=== PATIENT | male | born 1960 | race Hispanic/Latino ===

== ENCOUNTER → 2018-12-17 | Outpatient (CLI) | payer OTHER, MEDICARE ==
[2018-12-17 11:37] LABS: INR 0.99; PROTHROMBIN TIME 13.6 seconds (11.9-14.5)
[2018-12-17 11:38] LABS: PARTIAL THROMBOPLASTIN TIME 29.2 seconds (23.8-35.5)
--- NOTE | 2018-12-17 13:37 | Diagnostic Imaging Report ---
Procedure: Ultrasound-guided left diagnostic and therapeutic thoracentesis. rail flaw detector operator: Julianne Rojas MD Pre-operative diagnosis: Large left pleural effusion Post-operative diagnosis: Small left pleural effusion Conscious Sedation: None Additional Medications: Lidocaine 1% for local anesthesia Contrast used: None Estimated blood loss: <5 cc Blood proximal administered: None Specimens: 1200 cc of serosanguinous fluid Implants: None Condition at completion: Stable Disposition: Recovery in IR, then discharge home DISCUSSION: Informed consent was obtained from the patient and documented in the medical record. The patient was placed in upright position. The left posterior chest wall was prepped and draped in the standard sterile fashion. A suitable percutaneous intercostal approach to the left pleural space was identified and the overlying skin was infiltrated with 1% lidocaine for local anesthesia. A large left pleural effusion was identified on ultrasound. Then under continuous sonographic guidance, a 5 [place] Yueh needle catheter was advanced into the pleural space. The catheter was advanced off the needle and connected to vacuum bottle with subsequent evacuation of 1200 cc of serosanguinous fluid. The catheter was removed and a sterile, occlusive dressing was applied. Postprocedure sonographic image showed small left effusion. The patient tolerated the procedure well without immediate complication. Sample was sent to lab. IMPRESSION: Ultrasound-guided diagnostic and therapeutic left thoracentesis with evacuation of 1200 cc of serosanguinous fluid. Signed by: Dr. Julianne Rojas MD on 12/17/2018 1:34 PM
--- NOTE | 2018-12-17 13:40 | Diagnostic Imaging Report ---
EXAMINATION: CHEST XRAY POST PROCEDURE INDICATION: Status post left thoracentesis. COMPARISON: None FINDINGS: TUBES and LINES: Status post project over the left subclavian/axillary vessels. LUNGS: Lungs are well inflated. Patchy opacity in the left lower lung likely represents atelectasis. The right lung is clear. No evidence of pulmonary edema. PLEURA: There is a small left basilar hydropneumothorax. HEART AND MEDIASTINUM: The cardiomediastinal silhouette is unremarkable. Postsurgical changes. BONES AND SOFT TISSUES: No acute osseous abnormality. Status post median sternotomy. UPPER ABDOMEN: No free air under the diaphragm. IMPRESSION: Small left basilar hydropneumothorax status post thoracentesis. Signed by: Dr. Julianne Rojas MD on 12/17/2018 1:36 PM
[2018-12-17 14:47] LABS: BODY FLUID TYPE PERITONEAL
[2018-12-17 14:48] LABS: BODY FLUID APPEARANCE SL.CLOUDY; BODY FLUID COLOR RED
[2018-12-17 14:50] LABS: RBC,BODY FLUID 10469 cells/uL; WBC,BODY FLUID 124 cells/uL
[2018-12-17 16:28] LABS: NEUTROPHILS,BODY FLUID 3 %
[2018-12-17 16:29] LABS: MONO/MACROPHG,BODY FLUID 92 %; OTHER CELLS,BODY FLUID 5 %
== END ==
LOC: US 10:05
PROVIDERS: ATTEND Internal Medicine Critical Care Medicine
DX: J94.9 Pleural condition, unspecified (principal); I50.22 Chronic systolic (congestive) heart failure; N18.5 Chronic kidney disease, stage 5; E11.22 Type 2 diabetes mellitus with diabetic chronic kidney disease; N18.6 End stage renal disease; Z99.2 Dependence on renal dialysis
CPT/HCPCS: 32555; 36415; 71045; 83615; 84157; 85049; 85610; 85730; 87070; 87205; 88112; 88305; 89051

== ENCOUNTER → 2020-06-27 | Day surgery (SDC) | payer MEDICARE, OTHER ==
[~2020-06-27] MED LIST: CARVEDILOL12.5 MG PO; EPHEDRINE SULFATE INJ 50 MG/ML VIAL ONE; FENTANYL CITRATE/PF 100MCG/2 ML INJ ONE; HUMALOG100 UNIT/3 SC; LANTUS 3ML100 UNITS/ SC; LIDOCAINE HCL 2% LOCAL INJ 5 ML SDV VIAL INJ ONE; LINZESS145 MCG PO; LIPITOR10 MG PO; MIDAZOLAM HCL 2 MG/2 ML VIAL ONE; NIFEDIPINE ER30 M1 PO; ONDANSETRON HCL4 MG PO; PANTOPRAZOLE SO40 MG PO; PROPOFOL IV EMULSION 10 MG/ML 20 ML VIAL ONE; SODIUM CHLORIDE 0.9% 500ML 500 ML ONE; TRADJENTA5 MG PO
[2020-06-27 13:43] LABS: BASOPHILS # (AUTO) 0.1 (0.0-0.1); BASOPHILS % 1.3 % (0.0-1.0); EOSINOPHILS # (AUTO) 0.2 (0.0-0.4); EOSINOPHILS % 2.3 % (0.0-6.0); HEMATOCRIT 42.1 % (38.2-49.6); LYMPHOCYTES # (AUTO) 1.5 (1.0-3.2); LYMPHOCYTES % 18.7 % (18.0-39.1); MEAN CORPUSCULAR HGB CONC 33.3 g/dL (31-35); MEAN CORPUSCULAR VOLUME 93.3 fL (81-99); MONOCYTES # (AUTO) 0.8 (0.2-0.8); MONOCYTES % 9.8 % (4.4-11.3); NEUTROPHILS # (AUTO) 5.5 (2.1-6.9); NEUTROPHILS % 67.3 % (38.7-80.0); PLATELET COUNT 141 x10e3/uL (140-360); RED BLOOD COUNT 4.51 x10e6/uL (4.3-5.7); RED CELL DISTRIBUTION WIDTH 13.7 % (11.7-14.4)
[2020-06-27 13:51] LABS: INR 1.01; PROTHROMBIN TIME 13.8 seconds (11.9-14.5)
[2020-06-27 14:57] VITALS: BP 134/69
== END | disposition home or self-care (01) ==
LOC: OR 11:14
PROVIDERS: ATTEND Internal Medicine Gastroenterology
DX: Z12.11 Encounter for screening for malignant neoplasm of colon (principal); D12.0 Benign neoplasm of cecum; D12.2 Benign neoplasm of ascending colon; K29.50 Unspecified chronic gastritis without bleeding; K29.80 Duodenitis without bleeding; K44.9 Diaphragmatic hernia without obstruction or gangrene; K59.09 Other constipation; K21.00 Gastro-esophageal reflux disease with esophagitis, without bleeding; K64.8 Other hemorrhoids; R63.4 Abnormal weight loss; I25.10 Atherosclerotic heart disease of native coronary artery without angina pectoris; E11.22 Type 2 diabetes mellitus with diabetic chronic kidney disease; I12.0 Hypertensive chronic kidney disease with stage 5 chronic kidney disease or end stage renal disease; N18.6 End stage renal disease; Z01.810 Encounter for preprocedural cardiovascular examination; Z01.812 Encounter for preprocedural laboratory examination; Z20.828 Contact with and (suspected) exposure to other viral communicable diseases; Z79.4 Long term (current) use of insulin; Z99.2 Dependence on renal dialysis
CPT/HCPCS: 36415; 43239; 45384; 82948; 84132; 85025; 85610; 85730; 88305; 88312; 93005; J2001; J2250; J2704; J3010; J7040; U0002; 45378

== ENCOUNTER → 2020-11-07 | Day surgery (SDC) | payer MEDICARE, OTHER ==
[~2020-11-07] MED LIST changes: -EPHEDRINE SULFATE INJ 50 MG/ML VIAL ONE; -FENTANYL CITRATE/PF 100MCG/2 ML INJ ONE; -LIDOCAINE HCL 2% LOCAL INJ 5 ML SDV VIAL INJ ONE; -MIDAZOLAM HCL 2 MG/2 ML VIAL ONE
[2020-11-07 10:56] LABS: BASOPHILS # (AUTO) 0.1 (0.0-0.1); BASOPHILS % 1.4 % (0.0-1.0); EOSINOPHILS # (AUTO) 0.4 (0.0-0.4); EOSINOPHILS % 3.8 % (0.0-6.0); HEMATOCRIT 38.1 % (38.2-49.6); HEMOGLOBIN 12.8 g/dL (14.0-18.0); LYMPHOCYTES # (AUTO) 1.4 (1.0-3.2); LYMPHOCYTES % 15.6 % (18.0-39.1); MEAN CORPUSCULAR HEMOGLOBIN 32.2 pg (28-32); MEAN CORPUSCULAR HGB CONC 33.6 g/dL (31-35); MONOCYTES # (AUTO) 0.8 (0.2-0.8); MONOCYTES % 9.1 % (4.4-11.3); NEUTROPHILS # (AUTO) 6.3 (2.1-6.9); NEUTROPHILS % 69.6 % (38.7-80.0); PLATELET COUNT 135 x10e3/uL (140-360); RED BLOOD COUNT 3.97 x10e6/uL (4.3-5.7); RED CELL DISTRIBUTION WIDTH 13.2 % (11.7-14.4)
[2020-11-07 11:13] LABS: INR 0.96; PROTHROMBIN TIME 13.4 seconds (11.9-14.5)
[2020-11-07 11:14] LABS: PARTIAL THROMBOPLASTIN TIME 30.5 seconds (23.8-35.5)
[2020-11-07 11:15] LABS: ANION GAP 22.8 mmol/L (8-16); CALCIUM 8.7 mg/dL (8.4-10.2); CREATININE, SERUM 7.23 mg/dL (0.72-1.25); POTASSIUM 4.8 mmol/L (3.5-5.1)
[2020-11-07 13:30] VITALS: BP 189/88
== END | disposition home or self-care (01) ==
LOC: OR 09:48
PROVIDERS: ATTEND Internal Medicine Gastroenterology
DX: K20.80 Other esophagitis without bleeding (principal); K29.70 Gastritis, unspecified, without bleeding; K44.9 Diaphragmatic hernia without obstruction or gangrene; K21.9 Gastro-esophageal reflux disease without esophagitis; K31.89 Other diseases of stomach and duodenum; K29.80 Duodenitis without bleeding; K59.09 Other constipation; K64.8 Other hemorrhoids; U07.1 COVID-19; R63.4 Abnormal weight loss; I25.810 Atherosclerosis of coronary artery bypass graft(s) without angina pectoris; E11.65 Type 2 diabetes mellitus with hyperglycemia; E11.22 Type 2 diabetes mellitus with diabetic chronic kidney disease; I12.0 Hypertensive chronic kidney disease with stage 5 chronic kidney disease or end stage renal disease; N18.6 End stage renal disease; R39.9 Unspecified symptoms and signs involving the genitourinary system; Z01.810 Encounter for preprocedural cardiovascular examination; Z01.812 Encounter for preprocedural laboratory examination; Z20.822 Contact with and (suspected) exposure to COVID-19; Z79.4 Long term (current) use of insulin; Z99.2 Dependence on renal dialysis; Z95.1 Presence of aortocoronary bypass graft; K31.9 Disease of stomach and duodenum, unspecified
CPT/HCPCS: 36415; 43239; 80048; 82948; 85025; 85610; 85730; 88305; 88312; 93005; J2704; J7040; U0002